=== PATIENT | male | born 1960 | race Two or more races ===

== ENCOUNTER 2017-04-15 09:06 | Inpatient (IN) | payer MEDICAID, OTHER ==
[~2017-04-15] VITALS: Ht 180.3 cm; Wt 71.2 kg
[2017-04-15] MEDS ORDERED: SODIUM CHLORIDE 0.9% 1,000 ML IV ONE (11:45)
[2017-04-15 12:15] LABS: CHLORIDE 105 mEq/L (98-107)
[2017-04-15 12:20] LABS: BASOPHILS % 0.2 % (0.0-2.0); EOSINOPHILS % 0.5 % (0.0-5.0); HEMATOCRIT. 42.2 % (42.0-52.0); HEMOGLOBIN. 13.8 g/dL (14.0-18.0); LYMPHOCYTES % 20.7 % (20.0-50.0); MEAN CORPUSCULAR HEMOGLOBIN 27.2 pg (28.0-32.0); MEAN CORPUSCULAR VOLUME 83.2 fL (80.0-94.0); MEAN PLATELET VOLUME 9.1 fl (7.4-10.4); MONOCYTES % 9.1 % (2.0-8.0); NEUTROPHILS % 69.5 % (40.0-76.0); PLATELET 209 x1000/uL (130-400); RED BLOOD CELL COUNT 5.07 mill/uL (4.7-6.1); RED CELL DISTRIBUTION WIDTH 14.4 % (11.6-14.6)
[2017-04-15 12:23] LABS: CARBON DIOXIDE 26 mEq/L (21-32)
[2017-04-15] MEDS ORDERED: SODIUM CHLORIDE 0.9% 1,000 ML IV SCH (15:13)
[2017-04-15] MEDS ORDERED: IPRATROPIUM/ALBUTEROL 0.5-3(2.5)MG/3ML NEB INH PRN (15:30)
[2017-04-15] MEDS ORDERED: HYDROCODONE/ACETAMINOPHEN 5/325MG TABLET PO PRN (15:30)
[2017-04-15] MEDS ORDERED: ACETAMINOPHEN 325MG TABLET PO PRN (15:30)
[2017-04-15] MEDS ORDERED: CLONIDINE 0.1MG TABLET PO PRN (15:30)
[2017-04-15] MEDS ORDERED: ONDANSETRON HCL 4MG/2ML VIAL IV PRN (15:30)
[2017-04-15 18:40] VITALS: BP 143/63
[2017-04-15 20:00] VITALS: BP 127/60
[2017-04-15 21:00] VITALS: BP 127/60
[2017-04-15] MEDS: PIPERACILLIN/TAZ 3.375G PREMIX 50 ML IV SCH (21:49)
[2017-04-15] MEDS ORDERED: DEXTROSE 50% WATER 50ML SYRINGE IV PRN (23:45)
[2017-04-16] VITALS: BP 125/88
[2017-04-16 04:00] VITALS: BP 126/67
[2017-04-16] MEDS: PIPERACILLIN/TAZ 3.375G PREMIX 50 ML IV SCH ×3 (05:44→21:28)
[2017-04-16] MEDS: INSULIN LISPRO 100 UNITS/ML SUBCUT SCH ×4 (07:06→21:00)
[2017-04-16] MEDS: BLOOD SUGAR DIAGNOSTIC STRIP TEST SCH ×4 (07:06→21:00)
[2017-04-16 08:00] VITALS: BP 127/67
[2017-04-16 12:00] VITALS: BP 110/56
[2017-04-16 16:00] VITALS: BP 114/75
[2017-04-16 20:00] VITALS: BP 127/51
[2017-04-17 04:00] VITALS: BP 123/63
[2017-04-17] MEDS: PIPERACILLIN/TAZ 3.375G PREMIX 50 ML IV SCH ×3 (05:32→22:01)
[2017-04-17] MEDS: INSULIN LISPRO 100 UNITS/ML SUBCUT SCH ×3 (06:40→21:00)
[2017-04-17] MEDS: BLOOD SUGAR DIAGNOSTIC STRIP TEST SCH ×4 (06:43→21:57)
[2017-04-17 08:00] VITALS: BP 119/68
[2017-04-17 12:00] VITALS: BP 122/77
[2017-04-17 16:00] VITALS: BP 120/60
[2017-04-17 19:59] VITALS: BP 126/64
[2017-04-17] MEDS: ASCORBIC ACID 250 MG TABLET PO SCH (22:01)
[2017-04-18 00:45] VITALS: BP 113/53
[2017-04-18 04:50] VITALS: BP 109/66
[2017-04-18] MEDS: PIPERACILLIN/TAZ 3.375G PREMIX 50 ML IV SCH ×2 (05:43→13:56)
[2017-04-18] MEDS: INSULIN LISPRO 100 UNITS/ML SUBCUT SCH ×2 (05:51→12:26)
[2017-04-18 08:00] VITALS: BP 122/74
[2017-04-18] MEDS ORDERED: ZINC SULFATE 220 MG ( 50 ) CAPSULE PO SCH (09:00)
[2017-04-18] MEDS ORDERED: MULTIVITAMINS,THER W-MINERALS TABLET PO SCH (09:00)
[2017-04-18] MEDS: ASCORBIC ACID 250 MG TABLET PO SCH (09:25)
[2017-04-18] MEDS ORDERED: SILVER SULFADIAZINE 1% CREAM 50GM TOP SCH (11:30)
[2017-04-18 12:00] VITALS: BP 109/58
[2017-04-18] MEDS: BLOOD SUGAR DIAGNOSTIC STRIP TEST SCH (12:26)
== END 2017-04-18 21:20 | disposition home or self-care (01) | DRG 342 ==
LOC: ER 09:24 → 8WST 15:17 → ENRESERV 16:09
PROVIDERS: ADMIT Internal Medicine; ATTEND Internal Medicine
DX: S82.102B Unspecified fracture of upper end of left tibia, initial encounter for open fracture type I or II (principal); L03.116 Cellulitis of left lower limb; J44.9 Chronic obstructive pulmonary disease, unspecified; X58.XXXA Exposure to other specified factors, initial encounter; E11.9 Type 2 diabetes mellitus without complications; Y99.8 Other external cause status; Y93.89 Activity, other specified; Y92.89 Other specified places as the place of occurrence of the external cause; Z59.0 Homelessness
CPT/HCPCS: 36415; 73590; 73721; 80048; 82962; 83036; 85025; 87040; 87070; 87077; 87186; 87205; 96365; 97110; 97116; 97162; 99285; J1815; J2543; J7030; J7040

== ENCOUNTER 2017-04-23 10:51 | Inpatient (IN) | payer MEDICAID ==
[~2017-04-23] VITALS: Ht 170.2 cm; Wt 71.2 kg
[2017-04-23] MEDS ORDERED: HYDROCODONE/ACETAMINOPHEN 5/325MG TABLET PO STA (13:48)
[2017-04-23] MEDS ORDERED: PIPERACILLIN/TAZ 3.375G PREMIX 50 ML IV ONE (14:00)
[2017-04-23] MEDS ORDERED: VANCOMYCIN 1 G PREMIX 200 ML IV ONE (14:00)
[2017-04-23] MEDS ORDERED: SODIUM CHLORIDE 0.9% 1,000 ML IV ONE (14:00)
[2017-04-23 15:33] LABS: BASOPHILS % 0.8 % (0.0-2.0); EOSINOPHILS % 0.7 % (0.0-5.0); HEMATOCRIT. 37.8 % (42.0-52.0); HEMOGLOBIN. 12.4 g/dL (14.0-18.0); INR 1.2; LYMPHOCYTES % 25.4 % (20.0-50.0); MEAN CORPUSCULAR HEMOGLOBIN 27.1 pg (28.0-32.0); MEAN CORPUSCULAR VOLUME 82.2 fL (80.0-94.0); MONOCYTES % 8.6 % (2.0-8.0); NEUTROPHILS % 64.5 % (40.0-76.0); PLATELET 266 x1000/uL (130-400); PROTHROMBIN TIME 12.1 sec (9.4-11.6); RED CELL DISTRIBUTION WIDTH 13.9 % (11.6-14.6)
[2017-04-23 15:44] LABS: CARBON DIOXIDE 29 mEq/L (21-32); CHLORIDE 104 mEq/L (98-107)
[2017-04-23 20:00] VITALS: BP 118/51
[2017-04-23] MEDS ORDERED: MORPHINE SULFATE 2 MG/ML CPJ (NOT FOR IM USE) IV PRN ×2 (22:00→22:30)
[2017-04-23] MEDS ORDERED: DEXTROSE 50% WATER 50ML SYRINGE IV PRN (22:30)
[2017-04-23] MEDS ORDERED: IPRATROPIUM/ALBUTEROL 0.5-3(2.5)MG/3ML NEB HHN PRN (22:30)
[2017-04-23 22:45] VITALS: BP 118/51
[2017-04-24] VITALS: BP 118/51
[2017-04-24] MEDS ORDERED: MORPHINE SULFATE 4 MG/ML CPJ (NOT FOR IM USE) IV PRN (00:28)
[2017-04-24] MEDS: CLINDAMYCIN 900 MG in DEXTROSE 5% WATER 50 ML IV SCH ×4 (00:43→23:18)
[2017-04-24 04:00] VITALS: BP 117/58
[2017-04-24] MEDS: INSULIN LISPRO 100 UNITS/ML SUBCUT SCH ×4 (07:50→20:47)
[2017-04-24] MEDS: BLOOD SUGAR DIAGNOSTIC STRIP TEST SCH ×4 (07:53→20:48)
[2017-04-24 08:00] VITALS: BP 136/72
[2017-04-24 12:00] VITALS: BP 127/74
[2017-04-24] MEDS ORDERED: ENOXAPARIN 40MG/0.4ML SYR SUBCUT SCH ×2 (12:15→14:00)
[2017-04-24] MEDS ORDERED: ACETAMINOPHEN 325MG TABLET PO PRN (12:15)
[2017-04-24] MEDS ORDERED: IPRATROPIUM/ALBUTEROL 0.5-3(2.5)MG/3ML NEB INH PRN (12:15)
[2017-04-24] MEDS ORDERED: ONDANSETRON HCL 4MG/2ML VIAL IV PRN (12:15)
[2017-04-24] MEDS ORDERED: DOCUSATE SODIUM 100MG CAPSULE PO PRN (12:15)
[2017-04-24] MEDS ORDERED: VANCOMYCIN 1 G PREMIX 200 ML IV SCH (12:15)
[2017-04-24] MEDS ORDERED: HYDROCODONE/ACETAMINOPHEN 5/325MG TABLET PO PRN (12:15)
[2017-04-24] MEDS ORDERED: MAGNESIUM/ALUMINUM HYDROXIDE/SIMETHICONE 30ML UDC PO PRN (12:15)
[2017-04-24] MEDS ORDERED: GUAIFENESIN 200MG/10ML SUGAR FREE UDC PO PRN (12:15)
[2017-04-24] MEDS: PIPERACILLIN/TAZ 3.375G PREMIX 50 ML IV SCH ×2 (14:47→21:01)
[2017-04-24] MEDS: SODIUM CHLORIDE 0.9% 1,000 ML IV SCH (14:54)
[2017-04-24 16:00] VITALS: BP 132/65
[2017-04-24] MEDS: VANCOMYCIN 750 MG PREMIX 150 ML IV SCH ×2 (18:34→23:17)
[2017-04-25] VITALS: BP 101/63
[2017-04-25 04:00] VITALS: BP 123/64
[2017-04-25] MEDS: PIPERACILLIN/TAZ 3.375G PREMIX 50 ML IV SCH (06:16)
[2017-04-25] MEDS: SODIUM CHLORIDE 0.9% 1,000 ML IV SCH (06:16)
[2017-04-25] MEDS: BLOOD SUGAR DIAGNOSTIC STRIP TEST SCH (06:22)
[2017-04-25] MEDS: INSULIN LISPRO 100 UNITS/ML SUBCUT SCH (07:50)
[2017-04-25 08:00] VITALS: BP 107/53
[2017-04-25] MEDS: CLINDAMYCIN 900 MG in DEXTROSE 5% WATER 50 ML IV SCH (08:52)
[2017-04-25] MEDS: VANCOMYCIN 750 MG PREMIX 150 ML IV SCH (09:51)
== END 2017-04-25 11:15 | disposition left against medical advice (07) | DRG 349 ==
LOC: ER 11:00 → 6EST 15:50 → EDBEDREQ 16:01 → ENRESERV 16:05
PROVIDERS: ADMIT Internal Medicine; ATTEND Internal Medicine
DX: T84.038A Mechanical loosening of other internal prosthetic joint, initial encounter (principal); Z93.0 Tracheostomy status; E44.1 Mild protein-calorie malnutrition; E83.51 Hypocalcemia; I10 Essential (primary) hypertension; S81.802A Unspecified open wound, left lower leg, initial encounter; E11.9 Type 2 diabetes mellitus without complications; J44.9 Chronic obstructive pulmonary disease, unspecified; Z53.21 Procedure and treatment not carried out due to patient leaving prior to being seen by health care provider; F17.210 Nicotine dependence, cigarettes, uncomplicated; Z91.19 Patient's noncompliance with other medical treatment and regimen
CPT/HCPCS: 36415; 71010; 73590; 80053; 82962; 83605; 85025; 85610; 85651; 87040; 87070; 87077; 87186; 87205; 93005; 93970; 96365; 99285; J1650; J2270; J2543; J3370; J3490; J7030; J7060

== ENCOUNTER 2020-06-13 19:32 | Emergency (ER) | payer MEDICAID ==
[~2020-06-13] VITALS: Ht 167.6 cm; Wt 69.0 kg
[~2020-06-13 19:32] MED LIST: AMOX1TAB16 MT; GLIP10TA10 PO; INSU100I28 SQ; LIP40 PO; METF500T PO; TOPUD PO
[2020-06-13 19:38] VITALS: BP 144/84
[2020-06-13] MEDS ORDERED: CEPHALEXIN 250MG CAPSULE PO ONE (20:15)
[2020-06-13 21:43] LABS: BASOPHILS % 0.8 % (0.0-2.0); EOSINOPHILS % 2.3 % (0.0-5.0); HEMATOCRIT. 40.8 % (42.0-52.0); HEMOGLOBIN. 13.4 g/dL (14.0-18.0); LYMPHOCYTES % 30.1 % (20.0-50.0); MEAN CORPUSCULAR HEMOGLOBIN 27.1 pg (28.0-32.0); MEAN CORPUSCULAR VOLUME 82.8 fL (80.0-94.0); MEAN PLATELET VOLUME 9.7 fl (7.4-10.4); MONOCYTES % 10.7 % (2.0-8.0); NEUTROPHILS % 56.1 % (40.0-76.0); PLATELET 282 x1000/uL (130-400); RED BLOOD CELL COUNT 4.93 mill/uL (4.7-6.1); RED CELL DISTRIBUTION WIDTH 14.1 % (11.6-14.6)
[2020-06-13 21:46] LABS: CHLORIDE 102 mEq/L (98-107)
[2020-06-14] MEDS ORDERED: INSULIN REGULAR (HUMULIN R) 300UNITS/3ML VIAL SUBCUT ONE (01:45)
== END 2020-06-14 01:45 | disposition home or self-care (01) ==
LOC: ER 19:32
DX: L97.829 Non-pressure chronic ulcer of other part of left lower leg with unspecified severity (principal); Z59.0 Homelessness; T85.698A Other mechanical complication of other specified internal prosthetic devices, implants and grafts, initial encounter; E11.9 Type 2 diabetes mellitus without complications; F14.10 Cocaine abuse, uncomplicated; F16.10 Hallucinogen abuse, uncomplicated; F12.90 Cannabis use, unspecified, uncomplicated
CPT/HCPCS: 36415; 80053; 85025; 93005; 99284

== ENCOUNTER 2020-10-10 18:40 | Inpatient (IN) | payer MEDICAID, OTHER ==
[~2020-10-10] VITALS: Ht 172.7 cm; Wt 82.1 kg
[2020-10-10 20:28] LABS: BASOPHILS % 1.1 % (0.0-2.0); EOSINOPHILS % 0.7 % (0.0-5.0); HEMATOCRIT. 39.8 % (42.0-52.0); HEMOGLOBIN. 13.1 g/dL (14.0-18.0); MEAN CORPUSCULAR HEMOGLOBIN 26.7 pg (28.0-32.0); MEAN PLATELET VOLUME 8.9 fl (7.4-10.4); MONOCYTES % 8.4 % (2.0-8.0); NEUTROPHILS % 67.8 % (40.0-76.0); PLATELET 367 x1000/uL (130-400); RED BLOOD CELL COUNT 4.91 mill/uL (4.7-6.1); RED CELL DISTRIBUTION WIDTH 14.5 % (11.6-14.6)
[2020-10-10 21:10] LABS: CHLORIDE 101 mEq/L (98-107)
[2020-10-10] MEDS ORDERED: CEFTRIAXONE 1 G PREMIX 50 ML IV ONE (23:30)
[2020-10-11] MEDS ORDERED: DOCUSATE SODIUM 100MG CAPSULE PO PRN (09:00)
[2020-10-11] MEDS ORDERED: CLONIDINE 0.1MG TABLET PO PRN (09:00)
[2020-10-11] MEDS ORDERED: ONDANSETRON HCL 4MG/2ML INJ IV PRN (09:00)
[2020-10-11] MEDS ORDERED: DEXTROSE 50% WATER 50ML SYRINGE IV PRN ×2 (09:00)
[2020-10-11] MEDS ORDERED: MAGNESIUM/ALUMINUM HYDROXIDE/SIMETHICONE 30ML UDC PO PRN (09:00)
[2020-10-11] MEDS ORDERED: ACETAMINOPHEN 325MG TABLET PO PRN (09:00)
[2020-10-11] MEDS: BLOOD SUGAR DIAGNOSTIC STRIP TEST SCH ×4 (09:00→21:00)
[2020-10-11] MEDS ORDERED: DIPHENHYDRAMINE 50MG/ML VIAL IV PRN (09:00)
[2020-10-11 09:30] VITALS: BP 140/62
[2020-10-11] MEDS: ENOXAPARIN 40MG/0.4ML SYR SUBCUT SCH (09:30)
[2020-10-11] MEDS: INSULIN LISPRO 100 UNITS/ML SUBCUT SCH ×4 (09:30→21:00)
[2020-10-11 12:00] VITALS: BP 130/66
[2020-10-11] MEDS ORDERED: SODIUM POLYSTYRENE SULFONATE 15 G/60 ML BOT PO NR (14:33)
[2020-10-11] MEDS: HYDROCODONE/ACETAMINOPHEN 5/325MG TABLET PO PRN ×2 (14:33→21:00)
[2020-10-11 16:00] VITALS: BP 145/80
[2020-10-11 16:22] LABS: CLARITY URINE CLEAR (CLEAR); COLOR URINE YELLOW (YELLOW); KETONES URINE NEGATIVE (NEGATIVE); LEUKOCYTE ESTERASE URINE NEGATIVE (NEGATIVE); NITRITE URINE NEGATIVE (NEGATIVE); OCCULT BLOOD URINE NEGATIVE (NEGATIVE); PH URINE 7.5 (4.5-8.0); PROTEIN URINE NEGATIVE (NEGATIVE); SPECIFIC GRAVITY URINE 1.034 (1.005-1.030); UROBILINOGEN URINE 0.2 E.U./dL (0.2-1.0)
[2020-10-11 16:34] LABS: *AMPHETAMINES SCREEN URINE NEGATIVE (NEGATIVE); *BARBITURATES SCREEN URINE NEGATIVE (NEGATIVE); *BENZODIAZEPINES SCREEN URINE NEGATIVE (NEGATIVE); *COCAINE SCREEN URINE PRESUMTIVE POSITIVE (NEGATIVE); METHADONE URINE SCREEN NEGATIVE (NEGATIVE); OPIATES URINE SCREEN NEGATIVE (NEGATIVE)
[2020-10-11 16:35] LABS: CANNABINOID URINE SCREEN NEGATIVE (NEGATIVE); PHENCYCLIDINE URINE SCREEN NEGATIVE (NEGATIVE)
[2020-10-11] MEDS: CEFEPIME 2,000 MG in DEXT 5% WATER 100 ML IV SCH (18:32)
[2020-10-11] MEDS ORDERED: VANCOMYCIN 1250MG in DEXTROSE 5% WATER 250ML IV SCH (19:30)
[2020-10-11 20:00] VITALS: BP 136/65
[2020-10-12] VITALS: BP 120/72
[2020-10-12] MEDS: CEFEPIME 2,000 MG in DEXT 5% WATER 100 ML IV SCH ×3 (03:06→17:23)
[2020-10-12 04:00] VITALS: BP 136/77
[2020-10-12] MEDS ORDERED: VANCOMYCIN 1 G PREMIX 200 ML IV SCH (04:00)
[2020-10-12] MEDS: OMEPRAZOLE 20MG CAPSULE EXTENDED RELEASE PO SCH (05:18)
[2020-10-12 06:50] LABS: BASOPHILS % 0.9 % (0.0-2.0); EOSINOPHILS % 2.5 % (0.0-5.0); HEMATOCRIT. 40.9 % (42.0-52.0); HEMOGLOBIN. 13.5 g/dL (14.0-18.0); LYMPHOCYTES % 32.4 % (20.0-50.0); MEAN CORPUSCULAR HEMOGLOBIN 27.2 pg (28.0-32.0); MEAN CORPUSCULAR VOLUME 82.3 fL (80.0-94.0); MEAN PLATELET VOLUME 9.1 fl (7.4-10.4); MONOCYTES % 13.8 % (2.0-8.0); NEUTROPHILS % 50.4 % (40.0-76.0); PLATELET 349 x1000/uL (130-400); RED BLOOD CELL COUNT 4.97 mill/uL (4.7-6.1); RED CELL DISTRIBUTION WIDTH 14.3 % (11.6-14.6)
[2020-10-12] MEDS: BLOOD SUGAR DIAGNOSTIC STRIP TEST SCH ×4 (07:20→21:00)
[2020-10-12] MEDS: INSULIN LISPRO 100 UNITS/ML SUBCUT SCH ×4 (07:50→21:00)
[2020-10-12 08:00] VITALS: BP 131/71
[2020-10-12] MEDS: ENOXAPARIN 40MG/0.4ML SYR SUBCUT SCH (09:00)
[2020-10-12 09:01] LABS: CHLORIDE 103 mEq/L (98-107)
[2020-10-12 09:21] LABS: LDL CHOLESTEROL 115 mg/dL (5-100); PHOSPHORUS 3.3 mg/dL (2.5-4.9)
[2020-10-12 09:26] LABS: HDL CHOLESTEROL 39 mg/dL (40-59)
[2020-10-12] MEDS: METFORMIN HCL 500MG TABLET PO SCH ×2 (10:06→17:29)
[2020-10-12 12:00] VITALS: BP 142/81
[2020-10-12] MEDS: VANCOMYCIN 1 G PREMIX 200 ML IV SCH ×2 (13:23→21:19)
[2020-10-12 16:00] VITALS: BP 126/47
[2020-10-12 20:00] VITALS: BP 130/72
[2020-10-13] VITALS: BP 108/58
[2020-10-13] MEDS: CEFEPIME 2,000 MG in DEXT 5% WATER 100 ML IV SCH ×2 (02:50→10:00)
[2020-10-13 04:00] VITALS: BP 103/58
[2020-10-13] MEDS: HYDROCODONE/ACETAMINOPHEN 5/325MG TABLET PO PRN ×2 (04:30→16:57)
[2020-10-13] MEDS: VANCOMYCIN 1 G PREMIX 200 ML IV SCH ×2 (05:46→13:33)
[2020-10-13] MEDS: OMEPRAZOLE 20MG CAPSULE EXTENDED RELEASE PO SCH (06:22)
[2020-10-13] MEDS: BLOOD SUGAR DIAGNOSTIC STRIP TEST SCH ×4 (07:00→21:00)
[2020-10-13] MEDS: INSULIN LISPRO 100 UNITS/ML SUBCUT SCH ×4 (07:45→21:00)
[2020-10-13 08:00] VITALS: BP 133/73
[2020-10-13] MEDS: METFORMIN HCL 500MG TABLET PO SCH ×2 (08:41→16:57)
[2020-10-13] MEDS: ENOXAPARIN 40MG/0.4ML SYR SUBCUT SCH (08:42)
[2020-10-13 12:00] VITALS: BP_SYST 111; BP_SYST 139; BP_DIAS 60; BP_DIAS 75
[2020-10-13] MEDS ORDERED: DEXTROSE 50% WATER 50ML SYRINGE IV PRN (12:00)
[2020-10-13] MEDS ORDERED: INSULIN GLARGINE UD 100 UNITS/ML SYR SUBCUT NR (12:30)
[2020-10-13] MEDS ORDERED: LIDOCAINE HCL 2% JELLY 5ML TOP NR (15:00)
[2020-10-13] MEDS ORDERED: LIDOCAINE HCL 1% 20ML VIAL (Pyxis) INJ INFIL NR (15:00)
[2020-10-13 16:00] VITALS: BP 139/72
[2020-10-13 20:00] VITALS: BP 128/74
[2020-10-13] MEDS: LINEZOLID 600MG TABLET PO SCH (21:57)
[2020-10-13] MEDS: AMOXICILLIN/POTASSIUM CLAVULANATE 875/125MG TAB PO SCH (21:57)
[2020-10-13] MEDS: INSULIN GLARGINE UD 100 UNITS/ML SYR SUBCUT SCH (22:00)
[2020-10-14] VITALS: BP 107/56
[2020-10-14 04:00] VITALS: BP 128/80
[2020-10-14] MEDS: OMEPRAZOLE 20MG CAPSULE EXTENDED RELEASE PO SCH (06:29)
[2020-10-14] MEDS: BLOOD SUGAR DIAGNOSTIC STRIP TEST SCH ×4 (07:20→21:16)
[2020-10-14] MEDS: INSULIN LISPRO 100 UNITS/ML SUBCUT SCH ×4 (07:50→21:16)
[2020-10-14 08:00] VITALS: BP 129/63
[2020-10-14] MEDS: METFORMIN HCL 500MG TABLET PO SCH ×2 (09:37→17:54)
[2020-10-14] MEDS: AMOXICILLIN/POTASSIUM CLAVULANATE 875/125MG TAB PO SCH ×2 (09:37→20:33)
[2020-10-14] MEDS: ENOXAPARIN 40MG/0.4ML SYR SUBCUT SCH (09:38)
[2020-10-14] MEDS: INSULIN GLARGINE UD 100 UNITS/ML SYR SUBCUT SCH ×2 (09:38→22:00)
[2020-10-14] MEDS: SODIUM HYPOCHLORITE 0.125% 473ML SOLUTION TOP SCH (09:38)
[2020-10-14 12:00] VITALS: BP 115/60
[2020-10-14] MEDS ORDERED: METF500T PO (12:54)
[2020-10-14] MEDS ORDERED: HYDR-4001 PO (12:54)
[2020-10-14] MEDS ORDERED: GLIP10TA10 PO (12:54)
[2020-10-14] MEDS ORDERED: INSU100I28 SQ (12:54)
[2020-10-14] MEDS: LINEZOLID 600MG TABLET PO SCH ×2 (14:51→20:33)
[2020-10-14 16:00] VITALS: BP 120/72
[2020-10-14] MEDS: GLIPIZIDE 10MG TABLET PO SCH (17:55)
[2020-10-14 20:00] VITALS: BP 127/68
[2020-10-14] MEDS: HYDROCODONE/ACETAMINOPHEN 5/325MG TABLET PO PRN (20:33)
[2020-10-14] MEDS: FAMOTIDINE 20MG TABLET PO SCH (20:33)
[2020-10-15 04:00] VITALS: BP 123/69
[2020-10-15] MEDS: BLOOD SUGAR DIAGNOSTIC STRIP TEST SCH ×4 (06:33→21:00)
[2020-10-15] MEDS: GLIPIZIDE 10MG TABLET PO SCH ×2 (06:33→17:50)
[2020-10-15 08:00] VITALS: BP 132/75
[2020-10-15] MEDS: FAMOTIDINE 20MG TABLET PO SCH ×2 (09:11→21:00)
[2020-10-15] MEDS: LINEZOLID 600MG TABLET PO SCH ×2 (09:11→21:00)
[2020-10-15] MEDS: AMOXICILLIN/POTASSIUM CLAVULANATE 875/125MG TAB PO SCH ×2 (09:12→21:00)
[2020-10-15] MEDS: ENOXAPARIN 40MG/0.4ML SYR SUBCUT SCH (09:12)
[2020-10-15] MEDS: METFORMIN HCL 500MG TABLET PO SCH ×2 (09:13→17:50)
[2020-10-15] MEDS: INSULIN LISPRO 100 UNITS/ML SUBCUT SCH ×4 (10:13→21:00)
[2020-10-15] MEDS: INSULIN GLARGINE UD 100 UNITS/ML SYR SUBCUT SCH ×2 (11:07→22:00)
[2020-10-15 12:00] VITALS: BP 112/67
[2020-10-15] MEDS: HYDROCODONE/ACETAMINOPHEN 5/325MG TABLET PO PRN (14:23)
[2020-10-15] MEDS: SODIUM HYPOCHLORITE 0.125% 473ML SOLUTION TOP SCH (14:25)
[2020-10-15 16:00] VITALS: BP 115/68
[2020-10-15 20:00] VITALS: BP 115/57
[2020-10-16] VITALS: BP 118/71
[2020-10-16 04:00] VITALS: BP 121/77
[2020-10-16] MEDS: GLIPIZIDE 10MG TABLET PO SCH (06:22)
[2020-10-16] MEDS: BLOOD SUGAR DIAGNOSTIC STRIP TEST SCH ×2 (06:44→12:20)
[2020-10-16] MEDS: INSULIN LISPRO 100 UNITS/ML SUBCUT SCH ×2 (07:50→12:50)
[2020-10-16 08:00] VITALS: BP 126/58
[2020-10-16] MEDS: ENOXAPARIN 40MG/0.4ML SYR SUBCUT SCH (09:00)
[2020-10-16] MEDS: FAMOTIDINE 20MG TABLET PO SCH (09:33)
[2020-10-16] MEDS: AMOXICILLIN/POTASSIUM CLAVULANATE 875/125MG TAB PO SCH (09:33)
[2020-10-16] MEDS: LINEZOLID 600MG TABLET PO SCH (09:33)
[2020-10-16] MEDS: METFORMIN HCL 500MG TABLET PO SCH (09:33)
[2020-10-16] MEDS: INSULIN GLARGINE UD 100 UNITS/ML SYR SUBCUT SCH (10:00)
[2020-10-16 12:00] VITALS: BP 178/94
== END 2020-10-16 15:05 | disposition home health service (06) | DRG 317 ==
LOC: ER 18:40 → UNDOADMIN 23:27 → 6EST 23:27 → ENRESERV 10-11 08:21 → 6EST 10-11 09:59
PROVIDERS: ADMIT Internal Medicine; ATTEND Internal Medicine
PROC: 0KBW0ZZ Excision of Left Foot Muscle, Open Approach (ICD-10-PCS; principal; 2020-10-13)
PROC: 0JBP0ZZ Excision of Left Lower Leg Subcutaneous Tissue and Fascia, Open Approach (ICD-10-PCS; 2020-10-13)
DX: T84.7XXA Infection and inflammatory reaction due to other internal orthopedic prosthetic devices, implants and grafts, initial encounter (principal); A41.9 Sepsis, unspecified organism; E11.65 Type 2 diabetes mellitus with hyperglycemia; F31.9 Bipolar disorder, unspecified; F20.9 Schizophrenia, unspecified; E87.5 Hyperkalemia; L02.416 Cutaneous abscess of left lower limb; F14.10 Cocaine abuse, uncomplicated; L97.929 Non-pressure chronic ulcer of unspecified part of left lower leg with unspecified severity; J45.909 Unspecified asthma, uncomplicated; L03.116 Cellulitis of left lower limb; M86.662 Other chronic osteomyelitis, left tibia and fibula; E11.51 Type 2 diabetes mellitus with diabetic peripheral angiopathy without gangrene; F17.210 Nicotine dependence, cigarettes, uncomplicated; E11.00 Type 2 diabetes mellitus with hyperosmolarity without nonketotic hyperglycemic-hyperosmolar coma (NKHHC); Z20.822 Contact with and (suspected) exposure to COVID-19; Y83.8 Other surgical procedures as the cause of abnormal reaction of the patient, or of later complication, without mention of misadventure at the time of the procedure; Z59.0 Homelessness; Z91.19 Patient's noncompliance with other medical treatment and regimen; Y92.89 Other specified places as the place of occurrence of the external cause; Z79.899 Other long term (current) drug therapy; Z79.4 Long term (current) use of insulin
CPT/HCPCS: 36415; 71045; 73590; 73700; 80048; 80061; 80076; 80305; 81003; 82962; 83605; 83735; 84100; 84145; 84443; 85025; 85651; 86140; 87070; 87075; 87077; 87186; 87426; 97162; 99285; C1893; J0692; J0696; J1650; J1815; J3370; J3490; J7040; J7060

== ENCOUNTER 2021-10-20 13:53 | Emergency (ER) | payer MEDICAID, OTHER ==
[~2021-10-20] VITALS: Ht 177.8 cm; Wt 85.0 kg
[~2021-10-20 13:53] MED LIST changes: -AMOX1TAB16 MT; +HYDR-4001 PO
[2021-10-20] MEDS ORDERED: MAGNESIUM/ALUMINUM HYDROXIDE/SIMETHICONE 30ML UDC PO STA (17:30)
[2021-10-20] MEDS ORDERED: IBUPROFEN 600MG TABLET PO STA (17:30)
[2021-10-20 18:11] VITALS: BP 107/78
== END 2021-10-20 18:12 | disposition home or self-care (01) ==
LOC: ER 13:53
DX: L97.929 Non-pressure chronic ulcer of unspecified part of left lower leg with unspecified severity (principal); F12.10 Cannabis abuse, uncomplicated; F14.10 Cocaine abuse, uncomplicated; E11.9 Type 2 diabetes mellitus without complications; J45.909 Unspecified asthma, uncomplicated; Z98.890 Other specified postprocedural states; Z86.59 Personal history of other mental and behavioral disorders
CPT/HCPCS: 99283

== ENCOUNTER 2021-12-02 10:22 | Emergency (ER) | payer MEDICAID ==
[~2021-12-02] VITALS: Ht 182.9 cm; Wt 90.0 kg
[2021-12-02] MEDS ORDERED: SODIUM CHLORIDE 0.9% 1,000 ML IV ONE (12:30)
[2021-12-02 13:28] LABS: CLARITY URINE CLEAR (CLEAR); COLOR URINE YELLOW (YELLOW); KETONES URINE NEGATIVE (NEGATIVE); LEUKOCYTE ESTERASE URINE NEGATIVE (NEGATIVE); NITRITE URINE NEGATIVE (NEGATIVE); OCCULT BLOOD URINE NEGATIVE (NEGATIVE); PROTEIN URINE NEGATIVE (NEGATIVE); UROBILINOGEN URINE 0.2 E.U./dL (0.2-1.0)
[2021-12-02 13:41] LABS: BASOPHILS % 0.3 % (0.0-2.0); EOSINOPHILS % 1.4 % (0.0-5.0); HEMATOCRIT. 39.9 % (42.0-52.0); HEMOGLOBIN. 13.2 g/dL (14.0-18.0); LYMPHOCYTES % 34.2 % (20.0-50.0); MEAN CORPUSCULAR HEMOGLOBIN 27.6 pg (28.0-32.0); MEAN CORPUSCULAR VOLUME 83.2 fL (80.0-94.0); MEAN PLATELET VOLUME 9.2 fl (7.4-10.4); MONOCYTES % 6.4 % (2.0-8.0); NEUTROPHILS % 57.7 % (40.0-76.0); PLATELET 277 x1000/uL (130-400)
[2021-12-02 13:50] LABS: CHLORIDE 106 mEq/L (98-107)
[2021-12-02] MEDS ORDERED: VANCOMYCIN 1G PREMIX 200 ML IV ONE (15:00)
[2021-12-02] MEDS ORDERED: PIPERACILLIN/TAZ 3.375G PREMIX 50 ML IV ONE (15:00)
[2021-12-03 07:00] VITALS: BP 153/82
[2021-12-03] MEDS ORDERED: TOPUD PO (07:17)
== END 2021-12-03 07:36 | disposition home or self-care (01) ==
LOC: ER 11:50
DX: T84.623A Infection and inflammatory reaction due to internal fixation device of left tibia, initial encounter (principal); T84.197A Other mechanical complication of internal fixation device of bone of left lower leg, initial encounter; L03.116 Cellulitis of left lower limb; M96.89 Other intraoperative and postprocedural complications and disorders of the musculoskeletal system; E11.9 Type 2 diabetes mellitus without complications; Y82.8 Other medical devices associated with adverse incidents; Y92.89 Other specified places as the place of occurrence of the external cause; R03.0 Elevated blood-pressure reading, without diagnosis of hypertension; F14.90 Cocaine use, unspecified, uncomplicated; F12.90 Cannabis use, unspecified, uncomplicated; F16.90 Hallucinogen use, unspecified, uncomplicated
CPT/HCPCS: 36415; 73590; 80053; 81003; 85025; 87086; 96360; 99285; C1893; J7030; Z7610

== ENCOUNTER 2021-12-31 19:26 | Emergency (ER) | payer MEDICAID ==
[~2021-12-31] VITALS: Ht 182.9 cm; Wt 77.0 kg
[2021-12-31 19:46] VITALS: BP 126/75
[2021-12-31] MEDS ORDERED: IBUPROFEN 800MG TABLET PO ONE (21:30)
== END 2021-12-31 23:07 | disposition home or self-care (01) ==
LOC: ER 19:26
DX: G89.29 Other chronic pain (principal); M79.605 Pain in left leg; M79.604 Pain in right leg; I10 Essential (primary) hypertension; F31.9 Bipolar disorder, unspecified
CPT/HCPCS: 99283

== ENCOUNTER 2022-10-02 14:50 | Inpatient (IN) | payer MEDICAID, OTHER ==
[~2022-10-02] VITALS: Ht 180.3 cm; Wt 71.7 kg
[2022-10-02] MEDS ORDERED: ACETAMINOPHEN 325MG TABLET PO NR (16:00)
[2022-10-02] MEDS ORDERED: CEFTRIAXONE 1GM PREMIX 50 ML IV ONE (16:00)
[2022-10-02] MEDS ORDERED: ACETAMINOPHEN 325MG TABLET PO ONE (16:00)
[2022-10-02] MEDS ORDERED: VANCOMYCIN 1G PREMIX 200 ML IV SCH (16:00)
[2022-10-02 16:42] LABS: BASOPHILS % 0.8 % (0.0-2.0); EOSINOPHILS % 1.4 % (0.0-5.0); HEMATOCRIT. 41.1 % (42.0-52.0); HEMOGLOBIN. 13.5 g/dL (14.0-18.0); LYMPHOCYTES % 40.1 % (20.0-50.0); MEAN CORPUSCULAR HEMOGLOBIN 26.7 pg (28.0-32.0); MEAN CORPUSCULAR VOLUME 81.3 fL (80.0-94.0); MEAN PLATELET VOLUME 9.6 fl (7.4-10.4); MONOCYTES % 6.8 % (2.0-8.0); NEUTROPHILS % 50.9 % (40.0-76.0); PLATELET 271 x1000/uL (130-400); RED BLOOD CELL COUNT 5.06 mill/uL (4.7-6.1); RED CELL DISTRIBUTION WIDTH 14.2 % (11.6-14.6)
[2022-10-02 16:45] LABS: CHLORIDE 103 mEq/L (98-107)
[2022-10-02 16:54] LABS: ETHANOL BLOOD < 10 mg/dL
[2022-10-02 18:47] LABS: *AMPHETAMINES SCREEN URINE NEGATIVE (NEGATIVE); *BARBITURATES SCREEN URINE NEGATIVE (NEGATIVE); *BENZODIAZEPINES SCREEN URINE NEGATIVE (NEGATIVE); *COCAINE SCREEN URINE PRESUMTIVE POSITIVE (NEGATIVE); CANNABINOID URINE SCREEN NEGATIVE (NEGATIVE); METHADONE URINE SCREEN NEGATIVE (NEGATIVE); OPIATES URINE SCREEN NEGATIVE (NEGATIVE); PHENCYCLIDINE URINE SCREEN NEGATIVE (NEGATIVE)
[2022-10-03] MEDS ORDERED: HYDROCODONE/ACETAMINOPHEN 5/325MG TABLET PO PRN (11:15)
[2022-10-03] MEDS ORDERED: ONDANSETRON HCL 4MG/2ML INJ IV PRN (11:15)
[2022-10-03] MEDS ORDERED: DEXTROSE 50% WATER 50ML SYRINGE IV PRN (11:15)
[2022-10-03] MEDS ORDERED: KETOROLAC 30MG/ML VIAL IV PRN (11:15)
[2022-10-03] MEDS ORDERED: INSULIN GLARGINE 100 UNITS/ML SUBCUT NR (11:45)
[2022-10-03] MEDS: BLOOD SUGAR DIAGNOSTIC STRIP TEST SCH ×3 (11:59→21:00)
[2022-10-03] MEDS: VANCOMYCIN 750MG PREMIX 150 ML IV SCH ×2 (12:00→20:00)
[2022-10-03] MEDS ORDERED: LEVOFLOXACIN 500MG PREMIX 100 ML IV SCH (12:00)
[2022-10-03] MEDS: ENOXAPARIN 40MG/0.4ML SYR SUBCUT SCH (12:08)
[2022-10-03] MEDS: INSULIN LISPRO 100 UNITS/ML SUBCUT SCH ×3 (12:28→21:00)
[2022-10-03] MEDS ORDERED: NALOXONE HCL 0.4MG/ML VIAL IV PRN (16:30)
[2022-10-03] MEDS: INSULIN GLARGINE 100 UNITS/ML SUBCUT SCH (22:00)
[2022-10-04] MEDS: VANCOMYCIN 750MG PREMIX 150 ML IV SCH ×3 (04:58→22:18)
[2022-10-04] MEDS: BLOOD SUGAR DIAGNOSTIC STRIP TEST SCH ×4 (06:57→21:00)
[2022-10-04] MEDS: INSULIN LISPRO 100 UNITS/ML SUBCUT SCH ×4 (07:14→21:00)
[2022-10-04 08:00] VITALS: BP 127/62
[2022-10-04] MEDS: INSULIN GLARGINE 100 UNITS/ML SUBCUT SCH ×2 (10:00→21:30)
[2022-10-04 11:13] VITALS: BP 136/91
[2022-10-04] MEDS: ENOXAPARIN 40MG/0.4ML SYR SUBCUT SCH (11:45)
[2022-10-04 12:00] VITALS: BP 127/62
[2022-10-04 16:00] VITALS: BP 139/77
[2022-10-04 16:54] LABS: BASOPHILS % 0.6 % (0.0-2.0); EOSINOPHILS % 1.2 % (0.0-5.0); HEMATOCRIT. 43.6 % (42.0-52.0); HEMOGLOBIN. 14.2 g/dL (14.0-18.0); LYMPHOCYTES % 38.1 % (20.0-50.0); MEAN CORPUSCULAR HEMOGLOBIN 26.2 pg (28.0-32.0); MEAN CORPUSCULAR VOLUME 80.5 fL (80.0-94.0); MEAN PLATELET VOLUME 10.2 fl (7.4-10.4); MONOCYTES % 5.9 % (2.0-8.0); NEUTROPHILS % 54.2 % (40.0-76.0); PLATELET 282 x1000/uL (130-400); RED BLOOD CELL COUNT 5.41 mill/uL (4.7-6.1); RED CELL DISTRIBUTION WIDTH 14.1 % (11.6-14.6)
[2022-10-04 17:20] LABS: CHLORIDE 107 mEq/L (98-107)
[2022-10-04 20:00] VITALS: BP 142/80
[2022-10-05] VITALS: BP 140/82
[2022-10-05] MEDS: LEVOFLOXACIN 500MG PREMIX 100 ML IV SCH (00:22)
[2022-10-05 04:00] VITALS: BP 138/80
[2022-10-05] MEDS: VANCOMYCIN 750MG PREMIX 150 ML IV SCH ×3 (05:32→21:30)
[2022-10-05] MEDS: BLOOD SUGAR DIAGNOSTIC STRIP TEST SCH ×4 (07:20→21:09)
[2022-10-05] MEDS: INSULIN LISPRO 100 UNITS/ML SUBCUT SCH ×4 (07:50→21:00)
[2022-10-05 08:00] VITALS: BP 129/69
[2022-10-05] MEDS: INSULIN GLARGINE 100 UNITS/ML SUBCUT SCH ×2 (10:00→21:56)
[2022-10-05 12:00] VITALS: BP 130/64
[2022-10-05] MEDS: FLUOXETINE HCL 10 MG CAPSULE PO SCH (13:23)
[2022-10-05] MEDS: ENOXAPARIN 40MG/0.4ML SYR SUBCUT SCH (13:23)
[2022-10-05] MEDS ORDERED: INSU100I28 SQ (14:19)
[2022-10-05 16:00] VITALS: BP 133/79
[2022-10-05 20:00] VITALS: BP 130/68
[2022-10-06] VITALS: BP 129/70
[2022-10-06] MEDS: LEVOFLOXACIN 500MG PREMIX 100 ML IV SCH (00:23)
[2022-10-06 04:00] VITALS: BP 123/69
[2022-10-06] MEDS: VANCOMYCIN 750MG PREMIX 150 ML IV SCH ×3 (05:25→22:30)
[2022-10-06] MEDS: INSULIN LISPRO 100 UNITS/ML SUBCUT SCH ×5 (07:02→22:30)
[2022-10-06] MEDS: BLOOD SUGAR DIAGNOSTIC STRIP TEST SCH ×4 (07:20→21:00)
[2022-10-06 08:00] VITALS: BP 130/83
[2022-10-06] MEDS: FLUOXETINE HCL 10 MG CAPSULE PO SCH (08:35)
[2022-10-06] MEDS: INSULIN GLARGINE 100 UNITS/ML SUBCUT SCH ×2 (10:25→22:28)
[2022-10-06 12:00] VITALS: BP 135/80
[2022-10-06 13:38] LABS: HEMATOCRIT 46.6 % (42.0-52.0); HEMOGLOBIN 14.9 g/dL (14.0-18.0); MEAN CORPUSCULAR HEMOGLOBIN 25.9 pg (28.0-32.0); MEAN CORPUSCULAR VOLUME 80.8 fL (80.0-94.0); PLATELET 236 x1000/uL (130-400); RED BLOOD CELL COUNT 5.77 mill/uL (4.7-6.1); RED CELL DISTRIBUTION WIDTH 14.5 % (11.6-14.6)
[2022-10-06] MEDS: ENOXAPARIN 40MG/0.4ML SYR SUBCUT SCH (13:58)
[2022-10-06 15:49] LABS: CHLORIDE 107 mEq/L (98-107)
[2022-10-06 15:57] LABS: VANCOMYCIN TROUGH 14.5 ug/mL (5.0-10.0)
[2022-10-06 16:00] VITALS: BP 135/69
[2022-10-06] MEDS: LEVOFLOXACIN 500MG TABLET PO SCH (22:24)
[2022-10-07] MEDS: VANCOMYCIN 750MG PREMIX 150 ML IV SCH ×3 (05:51→22:50)
[2022-10-07] MEDS: BLOOD SUGAR DIAGNOSTIC STRIP TEST SCH ×4 (07:37→21:00)
[2022-10-07 08:00] VITALS: BP 130/72
[2022-10-07] MEDS: FLUOXETINE HCL 10 MG CAPSULE PO SCH (08:47)
[2022-10-07] MEDS: INSULIN LISPRO 100 UNITS/ML SUBCUT SCH ×4 (08:53→22:50)
[2022-10-07] MEDS: LAMOTRIGINE 25MG TABLET PO SCH (09:03)
[2022-10-07] MEDS: INSULIN GLARGINE 100 UNITS/ML SUBCUT SCH ×2 (09:08→22:49)
[2022-10-07 11:50] VITALS: BP 129/77
[2022-10-07] MEDS: ENOXAPARIN 40MG/0.4ML SYR SUBCUT SCH (12:30)
[2022-10-07] MEDS: SODIUM HYPOCHLORITE SOLUTION (0.5%)FULL STRENGTH TOP SCH ×2 (12:30→18:05)
[2022-10-07 16:00] VITALS: BP 119/69
[2022-10-07 19:40] VITALS: BP 139/70
[2022-10-07] MEDS: LEVOFLOXACIN 500MG TABLET PO SCH (22:50)
[2022-10-08] MEDS: VANCOMYCIN 750MG PREMIX 150 ML IV SCH ×3 (06:27→22:04)
[2022-10-08] MEDS: INSULIN LISPRO 100 UNITS/ML SUBCUT SCH ×4 (07:50→20:54)
[2022-10-08] MEDS: BLOOD SUGAR DIAGNOSTIC STRIP TEST SCH ×4 (07:54→20:27)
[2022-10-08 08:00] VITALS: BP 139/84
[2022-10-08] MEDS: FLUOXETINE HCL 10 MG CAPSULE PO SCH (08:45)
[2022-10-08] MEDS: LAMOTRIGINE 25MG TABLET PO SCH (08:45)
[2022-10-08] MEDS: SODIUM HYPOCHLORITE SOLUTION (0.5%)FULL STRENGTH TOP SCH ×2 (08:45→18:01)
[2022-10-08] MEDS: INSULIN GLARGINE 100 UNITS/ML SUBCUT SCH ×2 (10:05→22:00)
[2022-10-08] MEDS: ENOXAPARIN 40MG/0.4ML SYR SUBCUT SCH ×2 (10:34→10:38)
[2022-10-08 12:00] VITALS: BP 132/74
[2022-10-08 20:00] VITALS: BP 136/63
[2022-10-08] MEDS: LEVOFLOXACIN 500MG TABLET PO SCH (20:49)
[2022-10-09] VITALS: BP 141/70
[2022-10-09 04:00] VITALS: BP 136/70
[2022-10-09] MEDS: BLOOD SUGAR DIAGNOSTIC STRIP TEST SCH ×4 (06:57→21:00)
[2022-10-09] MEDS: INSULIN LISPRO 100 UNITS/ML SUBCUT SCH ×4 (07:50→21:00)
[2022-10-09 08:00] VITALS: BP 121/53
[2022-10-09] MEDS: SODIUM HYPOCHLORITE SOLUTION (0.5%)FULL STRENGTH TOP SCH ×2 (09:00→17:27)
[2022-10-09] MEDS: LAMOTRIGINE 25MG TABLET PO SCH (09:19)
[2022-10-09] MEDS: FLUOXETINE HCL 10 MG CAPSULE PO SCH (09:19)
[2022-10-09] MEDS: ENOXAPARIN 40MG/0.4ML SYR SUBCUT SCH (11:30)
[2022-10-09 12:00] VITALS: BP 139/83
[2022-10-09 16:00] VITALS: BP 130/79
[2022-10-09] MEDS: METFORMIN HCL 500MG TABLET PO SCH (17:33)
[2022-10-09 20:00] VITALS: BP 129/79
[2022-10-09] MEDS: INSULIN GLARGINE 100 UNITS/ML SUBCUT SCH (21:09)
[2022-10-10] VITALS: BP 131/66
[2022-10-10 04:00] VITALS: BP 131/75
[2022-10-10] MEDS: INSULIN LISPRO 100 UNITS/ML SUBCUT SCH ×4 (07:50→21:00)
[2022-10-10 08:00] VITALS: BP 129/71
[2022-10-10] MEDS: LAMOTRIGINE 25MG TABLET PO SCH (08:08)
[2022-10-10] MEDS: METFORMIN HCL 500MG TABLET PO SCH ×2 (08:08→17:16)
[2022-10-10] MEDS: BLOOD SUGAR DIAGNOSTIC STRIP TEST SCH ×4 (08:10→21:00)
[2022-10-10] MEDS: FLUOXETINE HCL 20MG CAPSULE PO SCH (08:10)
[2022-10-10] MEDS: SODIUM HYPOCHLORITE SOLUTION (0.5%)FULL STRENGTH TOP SCH ×2 (09:00→17:00)
[2022-10-10] MEDS: INSULIN GLARGINE 100 UNITS/ML SUBCUT SCH ×2 (10:00→22:00)
[2022-10-10] MEDS: ENOXAPARIN 40MG/0.4ML SYR SUBCUT SCH (11:30)
[2022-10-10 12:00] VITALS: BP 127/85
[2022-10-10 16:00] VITALS: BP 125/75
[2022-10-11] MEDS: METFORMIN HCL 500MG TABLET PO SCH ×2 (06:57→17:46)
[2022-10-11] MEDS: BLOOD SUGAR DIAGNOSTIC STRIP TEST SCH ×4 (06:57→21:00)
[2022-10-11] MEDS: GLYBURIDE 5MG TABLET PO SCH ×2 (06:58→17:46)
[2022-10-11] MEDS: INSULIN LISPRO 100 UNITS/ML SUBCUT SCH ×4 (07:12→21:00)
[2022-10-11 08:00] VITALS: BP 127/61
[2022-10-11] MEDS: FLUOXETINE HCL 20MG CAPSULE PO SCH (09:11)
[2022-10-11] MEDS: LAMOTRIGINE 25MG TABLET PO SCH (09:11)
[2022-10-11] MEDS: INSULIN GLARGINE 100 UNITS/ML SUBCUT SCH ×2 (09:13→21:36)
[2022-10-11] MEDS: SODIUM HYPOCHLORITE SOLUTION (0.5%)FULL STRENGTH TOP SCH ×2 (09:13→17:00)
[2022-10-11] MEDS: ENOXAPARIN 40MG/0.4ML SYR SUBCUT SCH (11:30)
[2022-10-11 12:00] VITALS: BP 130/75
[2022-10-11 16:00] VITALS: BP 125/71
[2022-10-11 20:00] VITALS: BP 111/53
[2022-10-12] VITALS: BP 114/53
[2022-10-12 04:00] VITALS: BP 128/68
[2022-10-12] MEDS: GLYBURIDE 5MG TABLET PO SCH (06:24)
[2022-10-12] MEDS: BLOOD SUGAR DIAGNOSTIC STRIP TEST SCH ×2 (07:20→12:20)
[2022-10-12] MEDS: INSULIN LISPRO 100 UNITS/ML SUBCUT SCH ×2 (07:50→12:44)
[2022-10-12 08:00] VITALS: BP 111/75
[2022-10-12] MEDS: FLUOXETINE HCL 20MG CAPSULE PO SCH (08:28)
[2022-10-12] MEDS: METFORMIN HCL 500MG TABLET PO SCH (08:28)
[2022-10-12] MEDS: LAMOTRIGINE 25MG TABLET PO SCH (08:28)
[2022-10-12] MEDS: SODIUM HYPOCHLORITE SOLUTION (0.5%)FULL STRENGTH TOP SCH (08:31)
[2022-10-12] MEDS: INSULIN GLARGINE 100 UNITS/ML SUBCUT SCH (10:00)
[2022-10-12] MEDS: ENOXAPARIN 40MG/0.4ML SYR SUBCUT SCH (11:30)
[2022-10-12 12:29] VITALS: BP 111/75
== END 2022-10-12 14:49 | disposition home health service (06) | DRG 721 ==
LOC: ER 15:01 → MICUSO 18:36 → 6EST 10-04 09:34
PROVIDERS: ADMIT Internal Medicine; ATTEND Internal Medicine
DX: T81.49XA Infection following a procedure, other surgical site, initial encounter (principal); E11.69 Type 2 diabetes mellitus with other specified complication; F33.1 Major depressive disorder, recurrent, moderate; M86.9 Osteomyelitis, unspecified; E11.65 Type 2 diabetes mellitus with hyperglycemia; F14.90 Cocaine use, unspecified, uncomplicated; F17.210 Nicotine dependence, cigarettes, uncomplicated; F20.9 Schizophrenia, unspecified; J45.909 Unspecified asthma, uncomplicated; Z20.822 Contact with and (suspected) exposure to COVID-19; F41.1 Generalized anxiety disorder; Z79.4 Long term (current) use of insulin; Z79.84 Long term (current) use of oral hypoglycemic drugs; Z82.49 Family history of ischemic heart disease and other diseases of the circulatory system; L03.116 Cellulitis of left lower limb
CPT/HCPCS: 36415; 71045; 73590; 73610; 80048; 80053; 80202; 80305; 80320; 82962; 83605; 84145; 85025; 85027; 85651; 87426; 97162; 97535; 99285; C9803; J0696; J1650; J1815; J1885; J1956; J3370; G0480

== ENCOUNTER 2024-08-09 11:07 | Inpatient (IN) | payer MEDICARE, MEDICAID ==
[~2024-08-09] VITALS: Ht 170.2 cm; Wt 81.6 kg
[~2024-08-09 11:07] MED LIST changes: +AMOX1TAB16 MT; -GLIP10TA10 PO; +GLIP10TA17 PO; +METF-416 MT
[2024-08-09] MEDS ORDERED: VANCOMYCIN 1.5GM/250ML 250 ML IV STA (13:47)
[2024-08-09] MEDS ORDERED: TETANUS, DIPHTHERIA, PERTUSSIS VAC/PF 0.5ML (>10YR OLD) IM ONE (14:00)
[2024-08-09] MEDS ORDERED: CEFEPIME 2GM IN DEXT 5% 100ML IV ONE (14:00)
[2024-08-09 14:50] LABS: CHLORIDE 107 mEq/L (98-107); POTASSIUM 4.2 mEq/L (3.5-5.1); SODIUM 138 mEq/L (136-145)
[2024-08-09 14:51] LABS: CARBON DIOXIDE 20 mEq/L (21-32)
[2024-08-09 14:52] LABS: CALCIUM 9.4 mg/dL (8.7-10.4)
[2024-08-09 14:57] LABS: CREATININE 1.2 mg/dL (0.6-1.3); GLUCOSE 287 mg/dL (70-105); UREA NITROGEN BLOOD 10 mg/dL (9-23)
[2024-08-09 14:59] LABS: BASOPHILS % 0.3 % (0.0-2.0); EOSINOPHILS % 3.7 % (0.0-5.0); HEMATOCRIT. 41.1 % (42.0-52.0); LYMPHOCYTES % 28.8 % (20.0-50.0); MEAN CORPUSCULAR HEMOGLOBIN 25.8 pg (28.0-32.0); MEAN CORPUSCULAR HGB CONC 31.6 g/dL (31.0-37.0); MEAN CORPUSCULAR VOLUME 81.8 fL (80.0-94.0); MEAN PLATELET VOLUME 10.5 fl (7.4-10.4); MONOCYTES % 7.2 % (2.0-8.0); PLATELET 196 x1000/uL (130-400); RED BLOOD CELL COUNT 5.02 mill/uL (4.7-6.1); WHITE BLOOD COUNT 5.5 x1000/uL (4.5-11.0)
[2024-08-09] MEDS: LIDOCAINE HCL 1% 20ML VIAL INFIL ONE (15:06)
[2024-08-09 15:13] LABS: DIFFERENTIAL COMMENT 1
[2024-08-09] MEDS ORDERED: DOCUSATE SODIUM 100MG CAPSULE PO PRN (22:15)
[2024-08-09] MEDS ORDERED: CLONIDINE 0.1MG TABLET PO PRN (22:15)
[2024-08-09] MEDS ORDERED: MAGNESIUM/ALUMINUM HYDROXIDE/SIMETHICONE 30ML UDC PO PRN (22:15)
[2024-08-09] MEDS ORDERED: IPRATROPIUM/ALBUTEROL 0.5-3(2.5)MG/3ML NEB HHN PRN (22:15)
[2024-08-09] MEDS ORDERED: ACETAMINOPHEN 325MG TABLET PO PRN ×2 (22:15)
[2024-08-09] MEDS ORDERED: ONDANSETRON HCL 4MG/2ML INJ IV PRN (22:15)
[2024-08-09] MEDS ORDERED: GUAIFENESIN 200MG/10ML SUGAR FREE UDC PO PRN (22:15)
[2024-08-10] MEDS ORDERED: DEXTROSE 50% WATER 50ML SYRINGE IV PRN (00:15)
[2024-08-10] MEDS: CEFEPIME 2GM/50ML DUPLEX 50 ML IV NR (01:38)
[2024-08-10] MEDS: TETANUS, DIPHTHERIA, PERTUSSIS VAC/PF 0.5ML (>10YR OLD) IM ONE (02:02)
[2024-08-10] MEDS: VANCOMYCIN 1.5GM PMX (XELLIA) 300 ML IV NR (02:03)
[2024-08-10 04:01] VITALS: BP 138/84; PULSE 99; RESP 20; TEMP 36.4736
[2024-08-10] MEDS: BLOOD SUGAR DIAGNOSTIC STRIP TEST SCH (07:00)
[2024-08-10] MEDS ORDERED: INSULIN LISPRO 100 UNITS/ML SUBCUT SCH (07:30)
[2024-08-10] MEDS: INSULIN LISPRO 100 UNITS/ML SUBCUT SCH ×2 (07:30→12:00)
[2024-08-10 08:00] VITALS: BP 110/64; PULSE 84; RESP 19; TEMP 36.72516; O2SAT 99
[2024-08-10] MEDS: ENOXAPARIN 40MG/0.4ML SYR SUBCUT SCH (09:00)
[2024-08-10] MEDS: PANTOPRAZOLE 40MG DR TABLET PO SCH (09:05)
[2024-08-10] MEDS: PIPERACILLIN/TAZO 3.375G/100ML 100 ML IV SCH (10:02)
[2024-08-10 12:00] VITALS: BP 117/65; PULSE 88; RESP 19; TEMP 36.55848; O2SAT 98
[2024-08-10] MEDS: METFORMIN HCL 500MG TABLET PO SCH (12:54)
[2024-08-10 16:00] VITALS: BP 122/67; PULSE 82; RESP 18; TEMP 36.78072; O2SAT 99
[2024-08-10 19:14] LABS: *AMPHETAMINES SCREEN URINE NEGATIVE (NEGATIVE); *BARBITURATES SCREEN URINE NEGATIVE (NEGATIVE); *BENZODIAZEPINES SCREEN URINE NEGATIVE (NEGATIVE); *COCAINE SCREEN URINE PRESUMPTIVE POSITIVE (NEGATIVE); CANNABINOID URINE SCREEN NEGATIVE (NEGATIVE); METHADONE URINE SCREEN NEGATIVE (NEGATIVE); OPIATES URINE SCREEN NEGATIVE (NEGATIVE); PHENCYCLIDINE URINE SCREEN NEGATIVE (NEGATIVE)
[2024-08-10 19:15] LABS: ECSTASY MDMA SCREEN URINE NEGATIVE (NEGATIVE)
[2024-08-10 20:00] VITALS: BP 118/64; PULSE 94; RESP 18; TEMP 36.3918; O2SAT 95
[2024-08-10] MEDS: INSULIN GLARGINE 100 UNITS/ML SUBCUT SCH (21:35)
[2024-08-11] VITALS: BP 124/70; PULSE 86; RESP 18; TEMP 36.44736; O2SAT 97
[2024-08-11 04:00] VITALS: BP 110/62; PULSE 91; RESP 18; TEMP 36.50292; O2SAT 97
[2024-08-11 08:00] VITALS: BP 121/73; PULSE 88; RESP 17; TEMP 36.22512; O2SAT 95
[2024-08-11 12:00] VITALS: BP 122/69; PULSE 93; RESP 18; TEMP 36.78072; O2SAT 96
[2024-08-11 15:13] VITALS: BP 122/69; PULSE 93; TEMP 98.2; O2SAT 96
[2024-08-11 16:00] VITALS: BP 126/85; PULSE 98; RESP 18; TEMP 36.6696; TEMP 36.66960; O2SAT 98
== END 2024-08-11 16:59 | DRG 605 ==
LOC: ER 11:07 → 8EST 16:16 → EDBEDREQ 16:20
PROVIDERS: ADMIT Hospitalist; ATTEND Hospitalist
PROC: 0HQ5XZZ Repair Chest Skin, External Approach (ICD-10-PCS; principal; 2024-08-09)
DX: S21.119A Laceration without foreign body of unspecified front wall of thorax without penetration into thoracic cavity, initial encounter (principal); Z59.00 Homelessness unspecified; F20.9 Schizophrenia, unspecified; D63.8 Anemia in other chronic diseases classified elsewhere; E11.65 Type 2 diabetes mellitus with hyperglycemia; J45.909 Unspecified asthma, uncomplicated; S81.802A Unspecified open wound, left lower leg, initial encounter; T50.995A Adverse effect of other drugs, medicaments and biological substances, initial encounter; D50.9 Iron deficiency anemia, unspecified; F32.A Depression, unspecified; F41.9 Anxiety disorder, unspecified; F14.90 Cocaine use, unspecified, uncomplicated; F17.210 Nicotine dependence, cigarettes, uncomplicated; F10.10 Alcohol abuse, uncomplicated; Z79.4 Long term (current) use of insulin; Z91.148 Patient's other noncompliance with medication regimen for other reason; Z79.84 Long term (current) use of oral hypoglycemic drugs; X99.1XXA Assault by knife, initial encounter; Y93.89 Activity, other specified; Y92.89 Other specified places as the place of occurrence of the external cause; Y99.8 Other external cause status
CPT/HCPCS: 12002; 36415; 71045; 80048; 80305; 82010; 82962; 85025; 87070; 90715; 99285; J0692; J1650; J2543; J3370; J3490